=== PATIENT | male | born 1980 | race Caucasian/White ===

== ENCOUNTER 2017-04-28 12:05 | Emergency (ER) | payer SELFPAY ==
--- NOTE | 2017-04-28 12:45 | DIAGNOSTIC IMAGING REPORT ---
PROCEDURE: XR CHEST 1 VIEW INDICATION: CHEST PAIN TECHNIQUE: Portable AP view 12:13 p.m. COMPARISON: None available FINDINGS: Lungs are clear. Heart and mediastinum are normal. Thorax is normal. IMPRESSION: 1. Negative chest.
--- NOTE | 2017-04-28 14:03 | ED CLINICAL REPORT ---
Clinical Report - Physicians/Mid Levels [facility] [address] [place] [address] 04/28/2017 12:06 Patient: JC LITTLEJOHN Time Seen: 12:15; initial patient contact. Arrived- By private vehicle. Historian- patient. HISTORY OF PRESENT ILLNESS Chief Complaint: CHEST PAIN. This started about 3 months ago and is now gone (resolved upon arrival in the emergency department). It was gradual in onset and has been intermittent. The patient cannot recall the circumstances at the onset. At its maximum, severity described as mild. When seen in the E.D., it was gone. Modifying factors. Not worsened by anything. Not relieved by anything. It is described as "pain" and it is described as located in the central chest area. No radiation. No nausea, vomiting, difficulty breathing or diaphoresis. Similar symptoms previously: Many times. Recent medical care: Not recently seen/assessed. REVIEW OF SYSTEMS No fever, chills, cough, pedal edema or calf pain. No fainting episodes. All systems otherwise negative, except as recorded above. PAST HISTORY Thrush. Acute Pain. Back Pain. Hernia SURGERIES: Hand and finger ortho. Hernia Repair. SOCIAL HISTORY Current every day smoker. History of drug use: marijuana. No alcohol use. ADDITIONAL NOTES The nursing notes have been reviewed. PHYSICAL EXAM Vital Signs: 04/28/2017 12:11 BP: 114/80. HR: 77. RR: 18. O2 saturation: 98%. Temp: 98.1 F. Have been reviewed as normal. Appearance: Alert. Oriented X3. No acute distress. Eyes: Eyes normal inspection. ENT: Pharynx normal. Neck: Normal inspection. No JVD. CVS: Normal heart rate and rhythm. Heart sounds normal. Respiratory: No respiratory distress. Breath sounds normal. Chest nontender. Abdomen: Soft and nontender. Bowel sounds normal. No organomegaly. No mass. Back: Normal external inspection. Skin: Skin warm and dry. Normal skin color. No rash. Extremities: No calf tenderness. No lower extremity edema. Neuro: Oriented X 3. LABS, X-RAYS, AND EKG EKG: EKG time: (1214). No acute process. No acute ischemia. Normal sinus rhythm. Rate: 77. Normal P waves. Normal CORIE. Normal QRS complex. Left axis deviation. Normal ST and T waves, QT and QTc. Prior EKG unavailable. The study has been interpreted contemporaneously by me. The study has been independently viewed by me. The EKG appears to be a good tracing. Interpretation time: 1214. Chest X-ray: No acute disease. Normal lung markings present. Normal heart size. No infiltrate. Views: AP. Technique: good. The X-rays were independently viewed by me and interpreted contemporaneously by me. Prior films were not available for comparison. Laboratory Tests: CBC w Diff: (MAHESH: 04/28/2017 12:15) ( Mscvd 04/28/2017 12:30) Final results Test Result Flag Units (Reference) WHITE BLOOD COUNT 8.5 K/uL (4.5-11.5) RED BLOOD COUNT 4.69 M/uL (4.50-5.90) HEMOGLOBIN 14.8 gm/dL (13.5-17.5) HEMATOCRIT 43.1 % (41.0-53.0) MEAN CELL VOLUME 92 fL (80-100) MEAN CORPUSCULAR HGB 32 pg (26-34) MEAN CORPUSCULAR HGB CONC 34 g/dL (31-37) RED CELL DISTRIBUTION WIDTH 13.1 % (11.6-14.8) PLATELET COUNT 263 K/uL (150-400) NEUTROPHIL % 62.0 % (50-75) LYMPH % 27.7 % (25-40) MONO % 7.9 % (3-14) EOSINOPHIL % 1.0 % (0-4) BASOPHIL % 1.4 % (0-2) CHEM 13 PANEL: (MAHESH: 04/28/2017 12:15) ( MsgRcvd 04/28/2017 12:48) Final results Test Result Flag Units (Reference) GLUCOSE 98 mg/dL (70-110) BUN 16 mg/dL (7-18) CREATININE 0.9 mg/dL (0.6-1.3) Estimated GFR >60 mL/min Estimated GFR- >60 mL/min Note: Persistent reduction over 3 months in eGFR<60 mL/min/1.73 m2 defines CKD. Patients with eGFR values>=60 mL/min/1.73 m2 may also have CKD if evidence ofpersistent proteinuria. Additional information may be foundat www.kidney.org. SODIUM 137 mmol/L (136-145) POTASSIUM 3.8 mmol/L (3.5-5.1) CHLORIDE 104 mmol/L (98-107) CARBON DIOXIDE 23 mmol/L (21-32) CALCIUM 9.0 mg/dL (8.5-10.1) TOTAL PROTEIN 7.8 g/dL (6.4-8.2) ALBUMIN 4.5 g/dL (3.3-5.0) BILIRUBIN, TOTAL 1.3 H mg/dL (0.0-1.0) ALKALINE PHOSPHATASE 60 U/L (46-116) AST (SGOT) 15 U/L (15-37) ALT (SGPT) 17 U/L (12-78) MAGNESIUM 1.9 mg/dL (1.8-2.4) CPK 125 U/L (24-260) TROPONIN I <0.05 ng/mL (0.00-1.5) TROPONIN REFERENCE RANGE:<0.1 NEGATIVE0.1-1.5 INDETERMINANT>1.5 POSITIVE . PROGRESS AND PROCEDURES Disposition: Discharged home in good and improved condition. Condition: good. CLINICAL IMPRESSION Atypical chest pain .12 lead EKG performed. INSTRUCTIONS Do not smoke- benefits of smoking cessation discussed (>3 -10 minutes). Seek medical help to quit smoking. Your Current Medications: CONTINUE TAKING THE FOLLOWING MEDICATIONS: None*. Follow-up: Screening today revealed the patient's blood pressure to be in the pre-hypertensive range. The patient should follow up with a primary care provider for blood pressure management. Follow-up with: [facility], [facility], , [address] [place] [address], [phone], [place] [address] Follow up in about five days. Call for an appointment. (Electronically signed by Indra Alejandro Dr. 04/29/2017 8:26)
--- NOTE | 2017-04-28 14:03 | ED NURSING NOTES ---
Clinical Report - Nurses [facility] [address] [place] [address] 04/28/2017 12:06 Patient: JC LITTLEJOHN TRIAGE Triage time 12:11. Acuity: LEVEL 3. Chief Complaint: CHEST PAIN and DISCOMFORT. Alert. No acute distress. SEPSIS SCREEN: Sepsis Screen. Negative (no infection suspected/documented). ERIN COMA SCORE: [place] Coma Scale: 15- eyes open spontaneously (4); best verbal response- oriented x 4 (5); best motor response- obeys commands (6). --12:18 Leda Gil R.N. 12:11 04/28/17. BP: 114/80. HR: 77. RR: 18. O2 saturation: 98%. Temp: 98.1 F. Pain level now 10/20. --12:18 Leda Gil R.N. Weight: 83.9 kg. Height/Length: 71 inches. BMI: 25.8. --12:11 Leda Gil R.N. Medications None. --12:15 Leda Gil R.N. Allergies Latex. --12:16 Leda Gil R.N. Medication/allergy information source: the patient. --12:18 Leda Gil R.N. History Arrived by private vehicle. Historian: patient. Accompanied by family. Primary physician (No PCP). Onset. (about 2 months). ( central chest pain increased 4-5 days, about 2 months total, NKI, sometimes SOB and dizzy or faint feeling.). He has had difficulty breathing. Treatment SENIOR WAREHOUSE CLERK: None. PAST MEDICAL HX: Immunizations: up-to-date. SOCIAL HX: Current every day heavy tobacco smoker- less than 1 pack per day. History of drug use: marijuana. No alcohol use. No infectious disease exposure. ABUSE ASSESSMENT: No report of abuse. SELF HARM ASSESSMENT: A self harm assessment was performed. The patient answered "no" to the question "Do you have thoughts of harming or killing yourself?" and "Are you here because you tried to hurt yourself?". FALL RISK ASSESSMENT: Fall risk assessment completed. No fall risk identified. NUTRITIONAL RISK ASSESSMENT: The nutritional risk assessment revealed no deficiencies. FUNCTIONAL ASSESSMENT: Functional assessment: no impairments noted. LEARNING NEEDS ASSESSMENT: The learning needs assessment revealed no barriers. SKIN INTEGRITY ASSESSMENT: Skin integrity risk assessment completed. No skin integrity risk identified. --12:18 Leda Gil R.N. PROBLEMS: Thrush. Acute Pain. Back Pain. --12:16 Leda Gil R.N. Hernia [RuleOut]. --12:16 Leda Gil R.N. ADDITIONAL SURGERIES: Hand and finger ortho. Hernia Repair. --12:16 Leda Gil R.N. Interventions ID band on patient. To treatment room. --12:18 Leda Gil R.N. PHYSICAL ASSESSMENT Ambulatory to room. GENERAL / NEURO / PSYCH: Alert. Oriented X 4. Appears in no acute distress. HEENT: Mucous membranes are pink. RESPIRATORY: No respiratory distress. Respirations not labored. Breath sounds within normal limits. CVS: Normal sinus rhythm noted. Heart sounds within normal limits. EXTREMITIES: No lower extremity edema. SKIN: Skin is warm and dry. Normal skin turgor. Skin is non-tender. --12:20 Leda Gil R.N. NURSING PROGRESS NOTES Monitoring of patient in place. Patient ID band checked for patient name and birthdate: patient confirmed. Blood samples drawn from the left hand peripheral IV site by nurse ; labeled in presence of the patient: red, green, purple and blue top. Patient gowned. Head of bed elevated. Reassurance given. Two patient identifiers checked. Call light placed in reach. Side rails up x 2. Bed placed in lowest position. Brakes of bed on. Patient ready for evaluation- chart flagged. ED physician notified. --12:21 Leda Gil R.N. 12:19 04/28/2017 Site #1 started via IV in the left hand with an 20g angiocath, with aseptic technique and good blood return; one attempt. Blood drawn: rainbow set. Labeled in the presence of the patient and sent to the lab. Saline lock flushed with 5 mL saline (placed by Juancarlos DE DIOS). --12:24 Leda Gil R.N. EKG time: (1214). EKG was performed by a tech and shown to the ED physician. Portable chest x-ray ordered. --12:26 Leda Gil R.N. The patient is calm. Overall patient status is the same- he states feels the same. ( pt mentions TV is not working). --12:58 Leda Gil R.N. 12:45 04/28/17. BP: 115/68. HR: 73. RR: 20. O2 saturation: 98%. Pain level now: 10/20. --12:58 Leda Gil R.N. 14:20. The patient is calm. Overall patient status is improved- he states feels better. RESPIRATORY: No respiratory distress. CVS: Cardiac rhythm: sinus rhythm. SKIN: Skin is warm and dry. --18:27 Chata Ohara R.N. 13:30 04/28/17. BP: 110/68. HR: 67. RR: 18. O2 saturation: 98% on room air. --18:40 Chata Ohara R.N. DISPOSITION / DISCHARGE 14:20 04/28/2017 Site #1 removed upon discharge. Catheter intact. Bandaid applied. --18:21 Chata Ohara R.N. Departure time: 1420. Condition at departure: stable. No learning barriers present. Discharge instructions provided and reviewed with the patient. Patient verbalized understanding. Written instructions provided in Thai. The patient was discharged home and accompanied by family. He left the Emergency Department ambulatory and via private vehicle. FALL RISK ASSESSMENT: Fall risk assessment completed. No fall risk identified. --18:25 Chata Ohara R.N. 14:20 04/28/17. BP: 115/64. HR: 70. RR: 18. O2 saturation: 100%. Pain level now: 010. --18:25 Chata Ohara R.N. Locked/Released at 04/28/2017 18:42 by Chata Ohara R.N.
--- NOTE | 2017-04-28 14:03 | ED ORDER SUMMARY ---
..... Patient: JC LITTLEJOHN OrderSheet [facility] VisitID: [id number] [place] [address] 37y, M Registration Date/Time: 04/28/2017 ORDER SHEET Weight: 83.9 kg Allergies: Latex GENERAL ORDERS: Chest 1V Urgent (12:04/28/2017 LAbe R.N. per protocol) (Ack 12:24 AMcQuoid ER Tech1) (18:41 Tammy R.N.) Brine Tank Tender (Continuous) (12:04/28/2017 LAbe R.N. per protocol) (12:23 AMcQuoid ER Tech1) Cardiac Panel Stat (12:04/28/2017 LAbe R.N. per protocol) (Ack 12:24 AMcQuoid ER Tech1) (18:41 Tammy R.N.) Pulse oximeter (12:04/28/2017 LAbe R.N. per protocol) (12:23 AMcQuoid ER Tech1) EKG - ER Stat (12:04/28/2017 LAbe R.N. per protocol) (12:23 AMcQuoid ER Tech1) Vitals (12:04/28/2017 LAbe R.N. per protocol) (12:23 AMcQuoid ER Tech1) NPO (12:04/28/2017 LAbe R.N. per protocol) (12:23 AMcQuoid ER Tech1) MEDICATION ORDERS: IV FLUIDS: IV Saline Lock (12:04/28/2017 LAbe R.N. per protocol) (12:24 LAbe R.N.) ORDER SHEET NOTES: [Electronically signed by Chata Ohara R.N. (18:42 04/28/2017)] [Electronically signed by Indra Alejandro Dr. (08:26 04/29/2017)] [Electronically locked/signed by Chata Ohara R.N. (18:42 04/28/2017)]
--- NOTE | 2017-04-28 14:03 | ED CLINICAL REPORT ---
Clinical Report - Physicians/Mid Levels [facility] [address] [place] [address] 04/28/2017 12:06 Patient: JC LITTLEJOHN Time Seen: 12:15; initial patient contact. Arrived- By private vehicle. Historian- patient. HISTORY OF PRESENT ILLNESS Chief Complaint: CHEST PAIN. This started about 3 months ago and is now gone (resolved upon arrival in the emergency department). It was gradual in onset and has been intermittent. The patient cannot recall the circumstances at the onset. At its maximum, severity described as mild. When seen in the E.D., it was gone. Modifying factors. Not worsened by anything. Not relieved by anything. It is described as "pain" and it is described as located in the central chest area. No radiation. No nausea, vomiting, difficulty breathing or diaphoresis. Similar symptoms previously: Many times. Recent medical care: Not recently seen/assessed. REVIEW OF SYSTEMS No fever, chills, cough, pedal edema or calf pain. No fainting episodes. All systems otherwise negative, except as recorded above. PAST HISTORY Thrush. Acute Pain. Back Pain. Hernia SURGERIES: Hand and finger ortho. Hernia Repair. SOCIAL HISTORY Current every day smoker. History of drug use: marijuana. No alcohol use. ADDITIONAL NOTES The nursing notes have been reviewed. PHYSICAL EXAM Vital Signs: 04/28/2017 12:11 BP: 114/80. HR: 77. RR: 18. O2 saturation: 98%. Temp: 98.1 F. Have been reviewed as normal. Appearance: Alert. Oriented X3. No acute distress. Eyes: Eyes normal inspection. ENT: Pharynx normal. Neck: Normal inspection. No JVD. CVS: Normal heart rate and rhythm. Heart sounds normal. Respiratory: No respiratory distress. Breath sounds normal. Chest nontender. Abdomen: Soft and nontender. Bowel sounds normal. No organomegaly. No mass. Back: Normal external inspection. Skin: Skin warm and dry. Normal skin color. No rash. Extremities: No calf tenderness. No lower extremity edema. Neuro: Oriented X 3. LABS, X-RAYS, AND EKG EKG: EKG time: (1214). No acute process. No acute ischemia. Normal sinus rhythm. Rate: 77. Normal P waves. Normal CORIE. Normal QRS complex. Left axis deviation. Normal ST and T waves, QT and QTc. Prior EKG unavailable. The study has been interpreted contemporaneously by me. The study has been independently viewed by me. The EKG appears to be a good tracing. Interpretation time: 1214. Chest X-ray: No acute disease. Normal lung markings present. Normal heart size. No infiltrate. Views: AP. Technique: good. The X-rays were independently viewed by me and interpreted contemporaneously by me. Prior films were not available for comparison. Laboratory Tests: CBC w Diff: (MAHESH: 04/28/2017 12:15) ( Mscvd 04/28/2017 12:30) Final results Test Result Flag Units (Reference) WHITE BLOOD COUNT 8.5 K/uL (4.5-11.5) RED BLOOD COUNT 4.69 M/uL (4.50-5.90) HEMOGLOBIN 14.8 gm/dL (13.5-17.5) HEMATOCRIT 43.1 % (41.0-53.0) MEAN CELL VOLUME 92 fL (80-100) MEAN CORPUSCULAR HGB 32 pg (26-34) MEAN CORPUSCULAR HGB CONC 34 g/dL (31-37) RED CELL DISTRIBUTION WIDTH 13.1 % (11.6-14.8) PLATELET COUNT 263 K/uL (150-400) NEUTROPHIL % 62.0 % (50-75) LYMPH % 27.7 % (25-40) MONO % 7.9 % (3-14) EOSINOPHIL % 1.0 % (0-4) BASOPHIL % 1.4 % (0-2) CHEM 13 PANEL: (MAHESH: 04/28/2017 12:15) ( MsgRcvd 04/28/2017 12:48) Final results Test Result Flag Units (Reference) GLUCOSE 98 mg/dL (70-110) BUN 16 mg/dL (7-18) CREATININE 0.9 mg/dL (0.6-1.3) Estimated GFR >60 mL/min Estimated GFR- >60 mL/min Note: Persistent reduction over 3 months in eGFR<60 mL/min/1.73 m2 defines CKD. Patients with eGFR values>=60 mL/min/1.73 m2 may also have CKD if evidence ofpersistent proteinuria. Additional information may be foundat www.kidney.org. SODIUM 137 mmol/L (136-145) POTASSIUM 3.8 mmol/L (3.5-5.1) CHLORIDE 104 mmol/L (98-107) CARBON DIOXIDE 23 mmol/L (21-32) CALCIUM 9.0 mg/dL (8.5-10.1) TOTAL PROTEIN 7.8 g/dL (6.4-8.2) ALBUMIN 4.5 g/dL (3.3-5.0) BILIRUBIN, TOTAL 1.3 H mg/dL (0.0-1.0) ALKALINE PHOSPHATASE 60 U/L (46-116) AST (SGOT) 15 U/L (15-37) ALT (SGPT) 17 U/L (12-78) MAGNESIUM 1.9 mg/dL (1.8-2.4) CPK 125 U/L (24-260) TROPONIN I <0.05 ng/mL (0.00-1.5) TROPONIN REFERENCE RANGE:<0.1 NEGATIVE0.1-1.5 INDETERMINANT>1.5 POSITIVE . PROGRESS AND PROCEDURES Disposition: Discharged home in good and improved condition. Condition: good. CLINICAL IMPRESSION Atypical chest pain .12 lead EKG performed. INSTRUCTIONS Do not smoke- benefits of smoking cessation discussed (>3 -10 minutes). Seek medical help to quit smoking. Your Current Medications: CONTINUE TAKING THE FOLLOWING MEDICATIONS: None*. Follow-up: Screening today revealed the patient's blood pressure to be in the pre-hypertensive range. The patient should follow up with a primary care provider for blood pressure management. Follow-up with: [facility], [facility], , [address] [place] [address], [address], [place] [address] Follow up in about five days. Call for an appointment. (Electronically signed by Indra Alejandro Dr. 04/29/2017 8:26)
--- NOTE | 2017-04-28 14:03 | ED ORDER SUMMARY ---
..... Patient: JC LITTLEJOHN OrderSheet [facility] VisitID: [id number] [place] [address] 37y, M Registration Date/Time: 04/28/2017 ORDER SHEET Weight: 83.9 kg Allergies: Latex GENERAL ORDERS: Chest 1V Urgent (12:04/28/2017 LAbe R.N. per protocol) (Ack 12:24 AMcQuoid ER Tech1) (18:41 Tammy R.N.) Installment Account Checker (Continuous) (12:04/28/2017 LAbe R.N. per protocol) (12:23 AMcQuoid ER Tech1) Cardiac Panel Stat (12:04/28/2017 LAbe R.N. per protocol) (Ack 12:24 AMcQuoid ER Tech1) (18:41 Tammy R.N.) Pulse oximeter (12:04/28/2017 LAbe R.N. per protocol) (12:23 AMcQuoid ER Tech1) EKG - ER Stat (12:04/28/2017 LAbe R.N. per protocol) (12:23 AMcQuoid ER Tech1) Vitals (12:04/28/2017 LAbe R.N. per protocol) (12:23 AMcQuoid ER Tech1) NPO (12:04/28/2017 LAbe R.N. per protocol) (12:23 AMcQuoid ER Tech1) MEDICATION ORDERS: IV FLUIDS: IV Saline Lock (12:04/28/2017 LAbe R.N. per protocol) (12:24 LAbe R.N.) ORDER SHEET NOTES: [Electronically signed by Chata Ohara R.N. (18:42 04/28/2017)] [Electronically signed by Indra Alejandro Dr. (08:26 04/29/2017)] [Electronically locked/signed by Chata Ohara R.N. (18:42 04/28/2017)]
--- NOTE | 2017-04-29 08:26 | ED DISCHARGE INSTRUCTIONS ---
Patient: JC LITTLEJOHN General Instructions [facility] VisitID: [id number] [address] [place] [id number] 37y, M Registration Date/Time: 04/28/2017 Atypical chest pain .12 lead EKG performed. INSTRUCTIONS Do not smoke- benefits of smoking cessation discussed (>3 -10 minutes). Seek medical help to quit smoking. Your Current Medications: CONTINUE TAKING THE FOLLOWING MEDICATIONS: None*. Follow-up: Screening today revealed the patient's blood pressure to be in the pre-hypertensive range. The patient should follow up with a primary care provider for blood pressure management. Follow-up with: [facility], [facility], , [address] [place] [address], [address], [place] [address] Follow up in about five days. Call for an appointment. ADDITIONAL INFORMATION Chest Pain, Noncardiac Based on your visit today, the exact cause of your chest pain is not certain. Your condition does not seem serious and your pain does not appear to be coming from your heart. However, sometimes the signs of a serious problem take more time to appear. Therefore, please watch for the warning signs listed below. Home Care: Rest today and avoid strenuous activity. Take any prescribed medicine as directed. Follow Up with your doctor or this facility as instructed or if you do not start to feel better within 24 hours. Get Prompt Medical Attention if any of the following occur: A change in the type of pain: if it feels different, becomes more severe, lasts longer, or begins to spread into your shoulder, arm, neck, jaw or back Shortness of breath or increased pain with breathing Cough with dark colored sputum (phlegm) or blood Weakness, dizziness, or fainting Fever of 100.4F (38C) or higher, or as directed by your healthcare provider Swelling, pain or redness in one leg How To Quit Smoking Smoking is one of the hardest habits to break. About half of all those who have ever smoked have been able to quit, and most of those (about 70%) who still smoke want to quit. Here are some of the best ways to stop smoking. Keep Trying: It takes most smokers about 8 tries before they are finally able to fully quit. So, the more often you try and fail, the better your chance of quitting the next time! So, don't give up! Go Cold [place]: Most ex-smokers quit cold turkey. Trying to cut back gradually doesn't seem to work as well, perhaps because it continues the smoking habit. Also, it is possible to fool yourself by inhaling more while smoking fewer cigarettes. This results in the same amount of nicotine in your body! Get Support: Support programs can make an important difference, especially for the heavy smoker. These groups offer lectures, methods to change your behavior and peer support. Call the free national Quitline for more information. 712-GZYH-TEZ (749-238-3960). Low-cost or free programs are offered by many hospitals, local chapters of the [employer] (185-753-8093) and the [employer] (751-401-7740). Support at home is important too. Non-smokers can help by offering praise and encouragement. If the smoker fails to quit, encourage them to try again! Pxwt-Eqe-Jiwnujb Medicines: For those who can't quit on their own, Nicotine Replacement Therapy (NRT) may make quitting much easier. Certain aids such as the nicotine patch, gum and lozenge are available without a prescription. However, it is best to use these under the guidance of your doctor. The skin patch provides a steady supply of nicotine to the body. Nicotine gum and lozenge gives temporary bursts of low levels of nicotine. Both methods take the edge off the craving for cigarettes. WARNING: If you feel symptoms of nicotine overdose, such as nausea, vomiting, dizziness, weakness, or fast heartbeat, stop using these and see your doctor. Prescription Medicines: After evaluating your smoking patterns and prior attempts at quitting, your doctor may offer a prescription medicine such as bupropion (Zyban, Wellbutrin), varenicline (Chantix, Champix), a niocotine inhaler or nasal spray. Each has its unique advantage and side effects which your doctor can review with you. Health Benefits Of Quitting: The benefits of quitting start right away and keep improving the longer you go without smokin minutes: blood pressure and pulse return to normal 8 hours: oxygen levels return to normal 2 days: ability to smell and taste begins to improve as damaged nerves start to regrow 2-3 weeks: circulation and lung function improves 1-9 months: decreased cough, congestion and shortness of breath; less tired 1 year: risk of heart attack decreases by half 5 years: risk of lung cancer decreases by half; risk of stroke becomes the same as a non-smoker For information about how to quit smoking, visit the following links: National Cancer [place] , Clearing the Air, Quit Smoking Today - an online booklet. http://www.smokefree.gov/pubs/clearing_the_air.pdf Smokefree.gov http://smokefree.gov/ QuitNet http://www.quitnet.com/ You have been given the following additional information: Chest Pain, Noncardiac Smoking Cessation (Electronically signed by Indra Alejandro Dr. 04/29/2017 8:26)
--- NOTE | 2017-04-29 08:26 | ED MED RECONCILIATION SUMMARY ---
Patient: JC LITTLEJOHN Medication Reconciliation Report [facility] VisitID: [id number] [address] [place] [address] 37y, M Registration Date/Time: 04/28/2017 Weight: 83.9 kg Height/Length: 71 in. BMI: 25.8 ALLERGIES: Latex The patient's Home Medications are listed below: NONE. The source(s) of the original Home Medication information: patient The following Medications were given to the patient in the Emergency Department: None. The following Medications were prescribed to the patient: None.
--- NOTE | 2017-04-29 08:26 | ED MED RECONCILIATION SUMMARY ---
Patient: JC LITTLEJOHN Medication Reconciliation Report [facility] VisitID: [id number] [address] [place] [address] 37y, M Registration Date/Time: 04/28/2017 Weight: 83.9 kg Height/Length: 71 in. BMI: 25.8 ALLERGIES: Latex The patient's Home Medications are listed below: NONE. The source(s) of the original Home Medication information: patient The following Medications were given to the patient in the Emergency Department: None. The following Medications were prescribed to the patient: None.
--- NOTE | 2017-04-29 08:26 | ED MAR SUMMARY ---
..... Medication Administration Record [facility] [address] [place], [place] [id number] Patient: JC LITTLEJOHN Rhonda Visit ID: [id number] 37y, M Weight: 83.9 kg Height/Length: 71 in BMI: 25.8 ALLERGIES: Latex
--- NOTE | 2017-04-29 08:26 | ED DISCHARGE INSTRUCTIONS ---
Patient: JC ILTTLEJOHN General Instructions [facility] VisitID: [id number] [place] [place] [id number] 37y, M Registration Date/Time: 04/28/2017 Atypical chest pain .12 lead EKG performed. INSTRUCTIONS Do not smoke- benefits of smoking cessation discussed (>3 -10 minutes). Seek medical help to quit smoking. Your Current Medications: CONTINUE TAKING THE FOLLOWING MEDICATIONS: None*. Follow-up: Screening today revealed the patient's blood pressure to be in the pre-hypertensive range. The patient should follow up with a primary care provider for blood pressure management. Follow-up with: [facility], [facility], , [address] [place] [address], [address], [place] [address] Follow up in about five days. Call for an appointment. ADDITIONAL INFORMATION Chest Pain, Noncardiac Based on your visit today, the exact cause of your chest pain is not certain. Your condition does not seem serious and your pain does not appear to be coming from your heart. However, sometimes the signs of a serious problem take more time to appear. Therefore, please watch for the warning signs listed below. Home Care: Rest today and avoid strenuous activity. Take any prescribed medicine as directed. Follow Up with your doctor or this facility as instructed or if you do not start to feel better within 24 hours. Get Prompt Medical Attention if any of the following occur: A change in the type of pain: if it feels different, becomes more severe, lasts longer, or begins to spread into your shoulder, arm, neck, jaw or back Shortness of breath or increased pain with breathing Cough with dark colored sputum (phlegm) or blood Weakness, dizziness, or fainting Fever of 100.4F (38C) or higher, or as directed by your healthcare provider Swelling, pain or redness in one leg How To Quit Smoking Smoking is one of the hardest habits to break. About half of all those who have ever smoked have been able to quit, and most of those (about 70%) who still smoke want to quit. Here are some of the best ways to stop smoking. Keep Trying: It takes most smokers about 8 tries before they are finally able to fully quit. So, the more often you try and fail, the better your chance of quitting the next time! So, don't give up! Go Cold [place]: Most ex-smokers quit cold turkey. Trying to cut back gradually doesn't seem to work as well, perhaps because it continues the smoking habit. Also, it is possible to fool yourself by inhaling more while smoking fewer cigarettes. This results in the same amount of nicotine in your body! Get Support: Support programs can make an important difference, especially for the heavy smoker. These groups offer lectures, methods to change your behavior and peer support. Call the free national Quitline for more information. 727-EAWM-MRE (529-638-0133). Low-cost or free programs are offered by many hospitals, local chapters of the [place] [employer] (167-665-3501) and the [place] [employer] (135-279-3967). Support at home is important too. Non-smokers can help by offering praise and encouragement. If the smoker fails to quit, encourage them to try again! Frdr-Thj-Knsngtl Medicines: For those who can't quit on their own, Nicotine Replacement Therapy (NRT) may make quitting much easier. Certain aids such as the nicotine patch, gum and lozenge are available without a prescription. However, it is best to use these under the guidance of your doctor. The skin patch provides a steady supply of nicotine to the body. Nicotine gum and lozenge gives temporary bursts of low levels of nicotine. Both methods take the edge off the craving for cigarettes. WARNING: If you feel symptoms of nicotine overdose, such as nausea, vomiting, dizziness, weakness, or fast heartbeat, stop using these and see your doctor. Prescription Medicines: After evaluating your smoking patterns and prior attempts at quitting, your doctor may offer a prescription medicine such as bupropion (Zyban, Wellbutrin), varenicline (Chantix, Champix), a niocotine inhaler or nasal spray. Each has its unique advantage and side effects which your doctor can review with you. Health Benefits Of Quitting: The benefits of quitting start right away and keep improving the longer you go without smokin minutes: blood pressure and pulse return to normal 8 hours: oxygen levels return to normal 2 days: ability to smell and taste begins to improve as damaged nerves start to regrow 2-3 weeks: circulation and lung function improves 1-9 months: decreased cough, congestion and shortness of breath; less tired 1 year: risk of heart attack decreases by half 5 years: risk of lung cancer decreases by half; risk of stroke becomes the same as a non-smoker For information about how to quit smoking, visit the following links: National Cancer [place] , Clearing the Air, Quit Smoking Today - an online booklet. http://www.smokefree.gov/pubs/clearing_the_air.pdf Smokefree.gov http://smokefree.gov/ QuitNet http://www.quitnet.com/ You have been given the following additional information: Chest Pain, Noncardiac Smoking Cessation (Electronically signed by Indra Alejandro Dr. 04/29/2017 8:26)
--- NOTE | 2017-04-29 08:26 | ED MAR SUMMARY ---
..... Medication Administration Record [facility] [address] [place], [place] [id number] Patient: JC LITTLEJOHN Rhonda Visit ID: [id number] 37y, M Weight: 83.9 kg Height/Length: 71 in BMI: 25.8 ALLERGIES: Latex
== END 2017-04-28 14:20 | disposition home or self-care (01) ==
LOC: ED SRH 12:05
DX: R07.89 Other chest pain (principal); F17.210 Nicotine dependence, cigarettes, uncomplicated; Z91.040 Latex allergy status
CPT/HCPCS: 90100; 90616; 92610; 92720; 95059